=== PATIENT | female | born 1965 | race Caucasian/White ===

== ENCOUNTER 2019-03-30 00:11 | Emergency (ER) | payer SELFPAY ==
[~2019-03-30] VITALS: Ht 160 cm; Wt 780.0 kg
[~2019-03-30 00:11] MED LIST: ATENOLOL25 MG PO; COMPAZINE10 MG PO; DILANTIN100 MG PO; LAMICTAL100 M1 PO; NAPROSYN500 MG PO; PEPCID20 MG PO
[2019-03-30] MEDS ORDERED: PRILOSEC20 MG/CAP PO (00:49)
[2019-03-30 01:01] LABS: IMMATURE GRANULOCYTES 0.4 % (0.0-5.0); MEAN CELL VOLUME 89.5 fL CALC (80.0-100.0); MEAN CORPUSCULAR HGB CONC 33.5 g/L CALC (32.0-36.0); NEUT# 9.87 thou/uL (2.00-7.15); RED BLOOD COUNT 4.67 mill/uL (4.20-5.60); RED CELL DISTRI WIDTH 12.8 % (11.5-15.5)
[2019-03-30 01:04] LABS: HEMATOCRIT 41.8 % (37.0-47.0)
[2019-03-30 01:22] LABS: URINE BILIRUBIN - DIPSTICK NEGATIVE (NEGATIVE); URINE BLOOD DIPSTICK NEGATIVE (NEGATIVE); URINE COLOR YELLOW; URINE GLUCOSE - DIPSTICK NEGATIVE (NEGATIVE); URINE KETONE NEGATIVE (NEGATIVE); URINE LEUK ESTERASE NEGATIVE (NEGATIVE); URINE NITRITE - DIPSTICK NEGATIVE (Negative); URINE PH 7.5 (4.5-8.0); URINE PROTEIN - DIPSTICK NEGATIVE (NEG-TRACE)
[2019-03-30 01:36] LABS: ALBUMIN 4.3 g/dL (3.2-5.0); ALKALINE PHOSPHATASE 97 u/l (38-126); AMYLASE 49 u/l (30-110); ANION GAP 12 (6-22 (CALC)); BILIRUBIN, TOTAL 0.6 mg/dL (0.0-1.4); BUN 14 mg/dL (7-17); BUN/CREATININE RATIO 14 (12-20 (CALC)); CARBON DIOXIDE 23 mmol/l (22-30); CHLORIDE 111 mmol/l (95-108); GFR 58 ML/MIN (>=60 (CALC)); GFR FOR AFR.AMER. > 60 ML/MIN (>=60 (CALC)); LIPASE 57 u/l (23-300); SODIUM 142 mmol/l (137-146); TOTAL PROTEIN 7.4 g/dL (6.3-8.2)
[2019-03-30 01:39] LABS: SGOT/AST 130 u/l (14-36)
[2019-03-30 01:47] LABS: MYOGLOBIN 75 ng/mL (0 - 62)
[2019-03-30] MEDS ORDERED: BENTYL10 MG PO (02:44)
[2019-03-30] MEDS ORDERED: PHENERGAN25 MG/TAB PO (02:44)
[2019-03-30 02:49] VITALS: BP 129/78
== END 2019-03-30 03:05 | disposition home or self-care (01) | DRG 392 ==
LOC: ED 00:11
PROVIDERS: Family Medicine
DX: K52.9 Noninfective gastroenteritis and colitis, unspecified (principal); F17.200 Nicotine dependence, unspecified, uncomplicated
CPT/HCPCS: Q9967